=== PATIENT | female | born 1955 | race Caucasian/White ===

== ENCOUNTER → 2017-01-12 | Outpatient (CLI) | payer BC ==
[2015-12-02 16:46] VITALS: BP 161/82
[~2017-01-12] MED LIST: BYSTOLIC5 MG PO; CATALYN; CETI10TA16 PO; CHOL100013 PO; LISI-334 PO; OMEG100020 PO; TRACE MINERALS; VITA40TA PO; [UNRECOGNIZED DRUG - OTHER]; [UNRECOGNIZED DRUG - OTHER]
--- NOTE | 2017-01-12 16:26 | RAD ---
2 views of the Chest 01/12/2017 2:00 AM Indication: BRONCHITIS. Comparison: Chest radiograph December 02, 2015 Findings: There is no focal consolidation or infiltrate identified. There is no effusion or pneumothorax. The cardiomediastinal silhouette and pulmonary vasculature are within normal limits. No osseous abnormality is identified. Hypoplastic left fourth rib noted. Impression: No evidence of acute cardiopulmonary process.
--- NOTE | 2017-01-12 16:31 | RAD ---
Thyroid ultrasound 01/12/2017 Indication: Follow-up imaging. Comparison study: Thyroid ultrasound January 28, 2016 Discussion: Ultrasound evaluation of the thyroid was performed. Static images were submitted to PACS. The thyroid gland is normal in size. Right thyroid measures 4.2 x 1.4 x 1.1 cm. Left lower measures 3.2 x 1.6 x 1.3 cm. The thyroid gland is diffusely heterogenous. Multiple small hypoechoic nodules are seen within the thyroid gland. On the right the largest nodule measures up to 4 mm in diameter. On the left there is a nodule abutting the isthmus measuring up to 3 mm in diameter. The overall appearance of the thyroid gland is similar to comparison study. Impression: Similar appearance of the thyroid gland including multiple small hypoechoic nodules, largest within the right thyroid measuring 4 mm is similar to prior exam.
== END | disposition home or self-care (01) ==
LOC: US 15:33
PROVIDERS: ATTEND Family Medicine
DX: J40 Bronchitis, not specified as acute or chronic (principal); E04.2 Nontoxic multinodular goiter
CPT/HCPCS: 71020; 76536